=== PATIENT | male | born 2000 | race Two or more races ===

== ENCOUNTER 2024-12-04 11:02 | Emergency (ER) | payer OTHER ==
[~2024-12-04] VITALS: Ht 188 cm; Wt 120.9 kg
[2024-12-04 11:35] VITALS: BP 118/68; PULSE 68; RESP 18; TEMP 98.7; O2SAT 98
[2024-12-04] MEDS: BACITRACIN TOP OINT 1 UD PKG TOP ONE (11:43)
[2024-12-04] MEDS: TETANUS-DIPTH-ACEL PERTUSSIS 0.5ML SYR Tdap IM ONE (11:48)
[2024-12-04] MEDS ORDERED: AMOX500T86 PO (12:11)
--- NOTE | 2024-12-04 12:11 | ED.PDOC ---
History of Present Illness(SKN HPI Comments 34-year-old male presented to the urgent care with a dog bite to the right your works at the [employer] and it dog bit him Chief Complaint: Animal Bite Time Seen by MD: 11:17 History of Present Illness: Nurses Notes, Medications, Allergies Allergies: Coded Allergies: Sertraline (Verified Allergy, Unknown, 12/04/24) Home Meds Active Scripts Amoxicillin & Pot Clavulanate (Augmentin) 500 Mg Tab, 500 MG PO TID for 5 Days, #15 TAB Prov:MAURICIO MUNIZ MD 12/04/24 Information Source: Patient Mode of Arrival: Ambulatory Severity: Mild, Moderate Timing: Hours Duration: Since onset Location: Hand Mechanism: Spontaneous Onset, Work Related, Dog Occurence: Outdoors Object: None Condition of Object: None Retained Foreign Body: No Wound Type: Laceration, Abrasion Immunization Status of Animal: Unknown Tetanus: >5 Years History of: None Associated Signs and Symptoms: None Past Medical History PAST MEDICAL HISTORY: Denies Surgical History: Denies all surgeries Social History Smoker: Non-Smoker Alcohol: Denies ETOH Use Drugs: Denies Drug Use Constitutional: denies: chills, diaphoresis, fatigue, fever, malaise, sweats, weakness, others EENTM: denies: blurred vision, double vision, ear bleeding, ear discharge, ear drainage, ear pain, ear ringing, eye pain, eye redness, hearing loss, mouth pain, mouth swelling, nasal discharge, nose bleeding, nose congestion, nose pain, photophobia, tearing, throat pain, throat swelling, voice changes, others Respiratory: denies: cough, hemoptysis, orthopnea, SOB at rest, shortness of breath, SOB with excertion, stridor, wheezing, others Cardiovascular: denies: chest pain, dizzy spells, diaphoresis, Dyspnea on exertion, edema, irregular heart beat, left arm pain, lightheadedness, palpitations, PND, syncope, others Gastrointestinal: denies: abdomen distended, abdominal pain, blood streaked bowels, constipated, diarrhea, dysphagia, difficulty swallowing, hematemesis, melena, nausea, poor appetite, poor fluid intake, rectal bleeding, rectal pain, vomiting, others Genitourinary: denies: burning, dysuria, flank pain, frequency, hematuria, incontinence, penile discharge, penile sore, pain, testicle pain, testicle swelling, urgency, others Neurological: denies: dizziness, fainting, headache, left sided numbness, left sided weakness, numbness, paresthesia, pre-existing deficit, right sided numbness, right sided weakness, seizure, speech problems, tingling, tremors, weakness, others Musculoskeletal: denies: back pain, gout, joint pain, joint swelling, muscle pain, muscle stiffness, neck pain, others Integumetry: reports: bruises, laceration, wounds; denies: change in color, change in hair/nails, dryness, lesions, lumps, rash, others Allergic/Immunocompromised: denies: Difficulty Healing, Frequent Infections, Hives, Itching, others Hematologic/Lymphatic: denies: anemia, blood clots, easy bleeding, easy bruising, swollen glands, others Endocrine: denies: excessive hunger, excessive sweating, excessive thirst, excessive urination, flushing, intolerance to cold, intolerance to heat, unexplained weight gain, unexplained weight loss, others Psychiatric: denies: anxiety, bipolar disorder, depression, hopeless, panic disorder, schizophrenia, sleepless, suicidal, others All Other Systems: Reviewed and Negative Physical Exam General Appearance: Mild Distress HEENT: Normal ENT Inspection, PERRL/EOMI Neck: Full Range of Motion, Non-Tender, Normal, Normal Inspection Respiratory: Chest Non-Tender, Lungs Clear, No Accessory Muscle Use, No Respiratory Distress, Normal Breath Sounds Cardiovascular: No Edema, No JVD, No Murmur, No Gallop, Normal Peripheral Pulses, Regular Rate/Rhythm Breast Exam: Deferred Gastrointestinal: No Organomegaly, Non Tender, No Pulsatile Mass, Normal Bowel Sounds, Soft Genitalia: Deferred Pelvic: Deferred Rectal: Deferred Extremities: No calf tenderness, Normal capillary refill, Normal inspection, Normal range of motion, Non-tender, No pedal edema Musculoskeletal : Location: Right Extremity Location: Hand Apperance: Normal, Tenderness: Mild, Other (Cm laceration) Neurologic: Alert, vinyl dipper II-XII nml as Tested, No Motor Deficits, Normal Affect, Normal Mood, No Sensory Deficits Cerebellar Function: Normal Reflexes: Normal Skin: Bruises, Dry, Lacerations, Normal Color, Warm Peripheral Pulses: 1+ carotid (R), 1+ carotid (L) Lymphatic: No Adenopathy Was a procedure done? Was a procedure done?: No Differential Diagnosis (INTG) Differential Diagnosis: Abrasion, Contusion, Laceration, Puncture Wound Differential Diagnosis: N/A Differential Diagnosis: Abrasion, Contusion Abscess: N/A Differential Diagnosis: Laceration, Puncture Wound, N/A X-Ray, Labs, Meds, VS Vital Signs Date Time Temp Pulse Resp B/P (MAP) Pulse Ox O2 Delivery O2 Flow Rate FiO2 12/04/24 11:35 68 18 98 Room Air 12/04/24 11:35 98.7 88 18 118/68 (85) 98 98.7 12/04/24 11:17 97.9 80 16 131/86 (101) 96 97.9 Current Medications Medications (Trade) Dose Ordered Sig/Markie Route Start Time Stop Time Status Last Admin Diphtheria/ Tetanus/Acell Pertussis (Boostrix T-Dap) 0.5 ml ONCE ONCE IM 12/04/24 11:45 12/04/24 11:46 DC 12/04/24 11:48 Bacitracin 1 applic ONCE ONCE TOP 12/04/24 11:45 12/04/24 11:46 DC 12/04/24 11:43 X-Ray, Labs, Meds, VS Comment Course in the [facility] uneventful patient came in because of a small laceration from puncture wound from a dog bite to his right hand thenar eminence No bleeding minimal swelling minimal discoloration and also a small abrasion to his forearm Wound is cleaned up with peroxide Neosporin ointment is applied as well as a dressing Patient is workman's comp form has been filled Patient will take Augmentin for five days and he needs to keep the wound clean and dry Time of 1ST Reevaluation: 11:17 Reevaluation 1ST: Unchanged Time of 2ND Reevaluation: 12:20 Reevaluation 2ND: Improved Consultation: PCP Patient Education/Counseling: Diagnosis, Treatment, Prognosis, Need For Follow Up Family Education/Counseling: Diagnosis, Treatment, Prognosis, Need For Follow Up, No Family Present Departure 1 Departure Time of Disposition: 12:08 Impression: Primary Impression: Dog bite of right hand Qualified Codes: S61.451A - Open bite of right hand, initial encounter; W54.0XXA - Bitten by dog, initial encounter Additional Impression: Abrasion of right forearm Qualified Codes: S50.811A - Abrasion of right forearm, initial encounter Disposition: HOME / SELF CARE / HOMELESS Condition: Fair Additional Instructions: Keep laceration clean and dry take your medication as directed and follow up with your workmen's comp e-Prescriptions Amoxicillin & Pot Clavulanate (Augmentin) 500 Mg Tab 500 MG PO TID for 5 Days, #15 TAB Prov: MAURICIO MUNIZ MD 12/04/24 Discharged With: Self Critical Care Note Critical Care Time?: No Stability Stability form required: No Heart Score Heart Score: Heart Score Response (Comments) Value History N/A 0 EKG N/A 0 Age <45 0 Risk Factors No known risk factors 0 Troponin N/A 0 Total 0 MAURICIO MUNIZ MD Dec 04, 2024 12:11
== END 2024-12-04 12:14 | disposition home or self-care (01) ==
LOC: ER 11:02
DX: S61.411A Laceration without foreign body of right hand, initial encounter (principal); S50.811A Abrasion of right forearm, initial encounter; Z79.899 Other long term (current) drug therapy; Z88.1 Allergy status to other antibiotic agents; W54.0XXA Bitten by dog, initial encounter; Y93.89 Activity, other specified; Y92.89 Other specified places as the place of occurrence of the external cause; Y99.8 Other external cause status
CPT/HCPCS: 90471; 90715